=== PATIENT | female | born 1975 | race Caucasian/White ===

== ENCOUNTER → 2020-01-05 15:15 | Outpatient (CLI) | payer BC, SELFPAY ==
--- NOTE | ~2020-01-05 | MM_ITS ---
EXAMINATION: MM screening [facility] BI w mercedes HISTORY: Screening mammogram TECHNIQUE: Craniocaudal and mediolateral oblique 3-D tomosynthesis images were obtained and synthetic 2-D images were generated. CAD analysis was submitted and interpreted. COMPARISON: 12/30/2017 bilateral digital screening mammogram BREAST PARENCHYMAL COMPOSITION: The breasts are heterogeneously dense, which may obscure small masses . FINDINGS: There are scattered bilateral benign calcifications. There is approximately 3.4 x 4.7 x 5.5 mm circumscribed mass in the lower inner left breast approxima tely 4.5 cm from the nipple on CC projection (MLO Tomosynthesis image 29/55; craniocaudal Tomosynthes is image 17/50). In similar position more posteriorly on the left is an approximately 3 x 5.5 mm circumscribed opacity (MLO Tomosynthesis image 29/55). Otherwise there is no evidence of suspicious mass, calcification, or architectural distortion to sugg est malignancy in either breast. There has been no other suspicious interval change. Stable benign in tramammary lymph node in the right axillary tail. IMPRESSION: 1. Left breast masses 2. Diagnostic left mammogram and left breast ultrasound examination are recommended BI-RADS Category 0: Incomplete: Needs additional imaging evaluation. Reviewed, dictated and finalized at location A. IMPRESSION: 1. Left breast masses 2. Diagnostic left mammogram and left breast ultrasound examination are recomme nded BI-RADS Category 0: Incomplete: Needs additional imaging evaluation.
== END ==
PROVIDERS: Visit Provider Obstetrics & Gynecology Gynecology
DX: Z12.31 Encounter for screening mammogram for malignant neoplasm of breast (principal); R92.8 Other abnormal and inconclusive findings on diagnostic imaging of breast
CPT/HCPCS: 77063; 77067

== ENCOUNTER → 2020-01-11 08:22 | Outpatient (CLI) | payer BC, SELFPAY ==
--- NOTE | ~2020-01-11 | MMUS_ITS ---
EXAMINATION: MM diagnostic mammo unilat LT, US breast LT limited HISTORY: Left breast masses on screening mammogram TECHNIQUE: Additional 3-D tomosynthesis images of the left breast were performed and synthetic 2-D im ages were generated. CAD analysis was submitted and interpreted. High resolution limited left breast ultrasound was performed. COMPARISON: 01/05/2020, 12/30/2017 FINDINGS: MAMMOGRAPHIC FINDINGS: There is a 6 mm x 5 mm oval, obscured, equal density mass in the middle third of the lower inner hansa st at the 8:00 location 4 cm from the nipple. A 4 mm x 3 mm oval, obscured, low density mass is seen in the posterior third of the breast at the 8:00 location 6 cm from the nipple. No suspicious archite ctural distortion or calcification are identified. ULTRASOUND: There is a 6 mm x 4 mm oval, circumscribed, parallel, hypoechoic mass at the 7:30 location 3.5 cm fro m the nipple with no posterior features or internal vascularity. A 4 mm x 2 mm mass with similar sono graphic features is seen at the 8:30 location 5 cm from the nipple. IMPRESSION: 1. Probably benign left breast masses. 2. Recommend 6 month follow-up left diagnostic mammogram and ultrasound. BI-RADS category 3, probably benign findings. Reviewed, dictated and finalized at location A. IMPRESSION: 1. Probably benign left breast masses. 2. Recommend 6 month follow-up left diagnostic mammogram and ultrasound. BI-RADS category 3, probably benign findings.
== END ==
PROVIDERS: Visit Provider Obstetrics & Gynecology Gynecology
DX: R92.8 Other abnormal and inconclusive findings on diagnostic imaging of breast (principal)
CPT/HCPCS: 76642; 77065

== ENCOUNTER → 2020-07-13 08:24 | Outpatient (CLI) | payer BC, SELFPAY ==
--- NOTE | ~2020-07-13 | MMUS_ITS ---
EXAMINATION: MM diagnostic [facility] LT w mercedes, US breast LT limited HISTORY: Six-month follow-up for probably benign left breast masses TECHNIQUE: Craniocaudal, mediolateral, and mediolateral oblique 3-D tomosynthesis images of the left breast were performed and synthetic 2-D images were generated. CAD analysis was submitted and interpr eted. High resolution limited left breast ultrasound was performed. COMPARISON: 01/11/2020, 01/05/2020, 12/30/2017 FINDINGS: MAMMOGRAPHIC FINDINGS: The previously described mass at the 8:00 location 4 cm from the nipple has decreased in size now jhonatan suring approximately 4 mm, previously 6 mm. The second mass previously described at the 8:00 location 6 cm from the nipple was not definitely identified. No suspicious calcification or architectural dis tortion are identified. ULTRASOUND: The previously described mass at the 7:30 location 3.5 cm from the nipple has decreased in size, cons istent with benign finding. A 4 mm x 2 mm oval, circumscribed, parallel, hypoechoic mass with no post erior features or internal vascularity at the 8:30 location 5 cm from the nipple is stable. There is a cyst at the 9:00 location 3 cm from the nipple. IMPRESSION: 1. Probably benign left breast mass at the 8:30 location 5 cm from the nipple. 2. Recommend 6 month follow-up left diagnostic mammogram and ultrasound. BI-RADS category 3, probably benign findings. Reviewed, dictated and finalized at location A. IMPRESSION: 1. Probably benign left breast mass at the 8:30 location 5 cm from the nipple. 2. Recommend 6 month follow-up left diagnostic mammogram and ultrasound. BI-RADS category 3, probably benign findings.
== END ==
PROVIDERS: Visit Provider Obstetrics & Gynecology Gynecology
DX: R92.8 Other abnormal and inconclusive findings on diagnostic imaging of breast (principal)
CPT/HCPCS: 76642; 77061; 77065; G0279

== ENCOUNTER → 2021-01-30 09:27 | Outpatient (CLI) | payer BC, SELFPAY ==
--- NOTE | ~2021-01-30 | MMUS_ITS ---
EXAMINATION: MM diagnostic [facility] BI w mercedes, US breast LT limited HISTORY: Six-month follow-up for probably benign left breast mass TECHNIQUE: Craniocaudal, mediolateral, and mediolateral oblique 3-D tomosynthesis images of the breas ts were performed and synthetic 2-D images were generated. CAD analysis was submitted and interpreted . High resolution limited left breast ultrasound was performed. COMPARISON: 07/13/2020, 01/11/2020, 01/05/2020, 12/30/2017 BREAST PARENCHYMAL COMPOSITION: The breasts are heterogeneously dense, which may obscure small masses . FINDINGS: MAMMOGRAPHIC FINDINGS: Left breast: The previously described mass at the 8:00 location 4 cm from the nipple continues to dec rease in size now measuring 2 mm, previously 4 mm. No suspicious calcification or architectural disto rtion are identified. Right breast: Scattered benign-appearing calcifications are present. There is no evidence of suspicio us mass, calcification, or architectural distortion to suggest malignancy. There has been no suspicio us interval change. ULTRASOUND: A previously described mass at the 7:30 location 3.5 cm from the nipple is stable but decreased in si ze since older prior examinations, consistent with benign finding. There is a cyst at the 9:00 locati on 3 cm from the nipple. A cyst is present at the 8:30 location 5 cm from the nipple. IMPRESSION: 1. No mammographic or sonographic evidence of malignancy. 2. Recommend routine screening mammography in one year. BI-RADS Category 2: Benign finding(s). Reviewed, dictated and finalized at location A. IMPRESSION: 1. No mammographic or sonographic evidence of malignancy. 2. Recommend routine screening mammography in one year. BI-RADS Category 2: Benign finding(s).
== END ==
PROVIDERS: Visit Provider Obstetrics & Gynecology Gynecology
DX: R92.8 Other abnormal and inconclusive findings on diagnostic imaging of breast (principal)
CPT/HCPCS: 76642; 77062; 77066; G0279

== ENCOUNTER → 2022-01-08 10:01 | Outpatient (CLI) | payer BC, SELFPAY ==
--- NOTE | ~2022-01-08 | MM_ITS ---
EXAMINATION: MM screening [facility] BI w mercedes HISTORY: Screening mammogram TECHNIQUE: Craniocaudal and mediolateral oblique 3-D tomosynthesis images were obtained and synthetic 2-D images were generated. CAD analysis was submitted and interpreted. COMPARISON: 01/30/2021, 07/13/2020, 01/11/2020, 01/05/2020 BREAST PARENCHYMAL COMPOSITION: There are scattered areas of fibroglandular density. FINDINGS: There is no suspicious mass, calcification, or architectural distortion to suggest malignan cy in either breast. There has been no suspicious interval change. IMPRESSION: 1. No mammographic evidence of malignancy. 2. Recommend routine screening mammography in one year. BI-RADS Category 1: Negative Reviewed, dictated and finalized at location A.
== END ==
PROVIDERS: Visit Provider Obstetrics & Gynecology Gynecology
DX: Z12.31 Encounter for screening mammogram for malignant neoplasm of breast (principal)
CPT/HCPCS: 77063; 77067

== ENCOUNTER → 2023-01-14 07:29 | Outpatient (CLI) | payer BC, SELFPAY ==
--- NOTE | ~2023-01-14 | MM_ITS ---
EXAMINATION: MM screening [facility] BI w mercedes HISTORY: Screening mammogram TECHNIQUE: Craniocaudal and mediolateral oblique 3-D tomosynthesis images were obtained and synthetic 2-D images were generated. CAD analysis was submitted and interpreted. COMPARISON: 01/08/2022 bilateral screening mammogram BREAST PARENCHYMAL COMPOSITION: There are scattered areas of fibroglandular density. FINDINGS: Occasional bilateral benign calcifications. Stable circumscribed low-density opacity in the posterior intermittent left breast. There is no evidence of suspicious mass, calcification, or archi tectural distortion to suggest malignancy in either breast. There has been no suspicious interval radha nge. IMPRESSION: 1. No mammographic evidence of malignancy. 2. Recommend routine screening mammography in one year. BI-RADS Category 2: Benign finding(s). Reviewed, dictated and finalized at location A.
== END ==
PROVIDERS: PCP Obstetrics & Gynecology Gynecology; Visit Provider Obstetrics & Gynecology Gynecology
DX: Z12.31 Encounter for screening mammogram for malignant neoplasm of breast (principal)
CPT/HCPCS: 77063; 77067

== ENCOUNTER 2023-11-27 09:17 | Emergency (ER) | payer BC, SELFPAY ==
[2023-11-27 09:50] VITALS: BP 99/54; PULSE 81; RESP 20; TEMP 37.2; O2SAT 97
--- NOTE | 2023-11-27 09:53 | ED.URI ---
HPI - URI/Sore Throat General Chief Complaint: Upper Respiratory Infection Stated Complaint: chest congestion Time Seen by Provider: 11/27/23 09:50 Source: patient, RN notes reviewed and old records reviewed Mode of arrival: ambulatory Limitations: no limitations History of Present Illness HPI Narrative: 48 year old female who presents to [facility] care with complaints of cough, chest congestion, body aches, and fevers since Friday with highest temperature of 101F. Patient reports that she has been taking Ibuprofen and Mucinex for her symptoms. Patient reports that she has raspy throat, nasal congestion and some pressure to ears, denies any shortness of breath, no nausea or vomiting or diarrhea. Patient reports that she has not had COVID immunizations or Flu shot MD elicited complaint: fever, cough, rhinorrhea, nasal congestion and other (body aches) Onset (ago): day(s) (4) Severity: moderate Able to tolerate fluids by mouth: Yes Treatments prior to arrival: ibuprofen and other (Mucinex) Related Data Home Medications Medication Instructions Recorded Confirmed No Home Medications 11/27/23 11/27/23 Allergies Allergy/AdvReac Type Severity Reaction Status Date / Time No Known Allergies Allergy Unknown Unverified 05/31/20 09:12 [facility] Allergy Unknown Uncoded 05/31/20 09:12 Review of Systems Review of Systems: CONSTITUTIONAL: Reports malaise, chills, sweats, or fever. EYES: Denies visual changes, redness, or discharge. ENT: Reports rhinorrhea, congestion, sinus pain, bilateral pressure to ears and raspy throat. CARDIOVASCULAR: Denies chest pain, palpitations, or edema. RESPIRATORY: Reports cough.? Denies dyspnea. GASTROINTESTINAL: Denies abdominal pain, nausea, vomiting, diarrhea SKIN: Denies rash or itching. MUSCULOSKELETAL: Reports myalgia. NEUROLOGIC: Denies headache. All systems reviewed & are unremarkable except as noted in HPI and below PMFSH Social History Social History Smoking status: Never smoker Second hand tobacco smoke exposure: No Alcohol intake: never Comments At time of signature, agree with nursing past medical, surgical, social and family history. There is no relevant family history pertinent to the presenting complaint Exam Narrative: GENERAL: Well-appearing, well-nourished, and in no acute distress. HEAD: Normocephalic EYES: PERRLA, conjunctivae clear ENT: Nares clear, turbinates edematous and erythematous, clear discharge. Mucous membranes moist. TM pearly finch with dull light reflex bilaterally; no tragal tenderness. Oropharynx erythematous without lesions. Tonsils not enlarged and without exudate, no drooling, no hoarseness, no trismus, uvula midline.Post nasal drainage NECK: Supple. No lymphadenopathy CHEST: Clear to auscultation, breath sounds equal. No wheezing, rhonchi, rales, or stridor. No respiratory distress, speaks in full sentences.cough,SAO2 97% on room air HEART: Regular rate and rhythm. No murmur heard. SKIN: Warm, dry, no rash. NEURO: Alert and oriented x3. PSYCH: Normal mood and affect Course Course Emergency Course: Patient is aware of diagnosis, understands and agrees to treatment plan.? Anticipatory guidance given.? Patient agrees to follow-up as directed and is aware of reasons to seek care at the emergency department. Portions of this record may have been created with voice recognition software Level of Care: Express Care Visit Vital Signs Vital signs: Vital Signs Temperature 37.2 C 11/27/23 09:50 Pulse Rate 81 11/27/23 09:50 Respiratory Rate 20 11/27/23 09:50 Blood Pressure 99/54 L 11/27/23 09:50 Pulse Oximetry 97 11/27/23 09:50 Oxygen Delivery Room Air 11/27/23 09:50 Temperature 37.2 C 11/27/23 09:50 Pulse Rate 81 11/27/23 09:50 Respiratory Rate 20 11/27/23 09:50 Blood Pressure 99/54 L 11/27/23 09:50 Pulse Oximetry 97 11/27/23
== END 2023-11-27 10:17 | disposition home or self-care (01) ==
PROVIDERS: Emergency Provider Registered Nurse
DX: J10.1 Influenza due to other identified influenza virus with other respiratory manifestations (principal); Z20.822 Contact with and (suspected) exposure to COVID-19
CPT/HCPCS: 87426; 87804; 99213; G0463

== ENCOUNTER 2024-02-03 09:26 | Outpatient (CLI) | payer BC, SELFPAY ==
--- NOTE | ~2024-02-03 | MM_ITS ---
EXAMINATION: MM screening [facility] BI w mercedes HISTORY: Screening mammogram TECHNIQUE: Craniocaudal and mediolateral oblique 3-D tomosynthesis images were obtained and synthetic 2-D images were generated. CAD analysis was submitted and interpreted. COMPARISON: January 14, 2023, January 08, 2022 bilateral screening mammogram examinations BREAST PARENCHYMAL COMPOSITION: There are scattered areas of fibroglandular density. FINDINGS: Scattered benign calcifications are again noted. There is no evidence of suspicious mass, c alcification, or architectural distortion to suggest malignancy in either breast. There has been no s uspicious interval change. IMPRESSION: 1. No mammographic evidence of malignancy. 2. Recommend routine screening mammography in one year. BI-RADS Category 2: Benign finding(s). Reviewed, dictated and finalized at location A.
== END 2024-02-03 09:27 ==
LOC: MICIMG 09:27
PROVIDERS: PCP Obstetrics & Gynecology Gynecology; Visit Provider Obstetrics & Gynecology Gynecology
DX: Z12.31 Encounter for screening mammogram for malignant neoplasm of breast (principal)
CPT/HCPCS: 77063; 77067

== ENCOUNTER 2025-02-03 09:14 | Outpatient (CLI) | payer BC, SELFPAY ==
--- NOTE | ~2025-02-03 | MM_ITS ---
EXAMINATION: MM screening [facility] BI w mercedes HISTORY: Screening TECHNIQUE: Craniocaudal and mediolateral oblique 3-D tomosynthesis images were obtained and synthetic 2-D images were generated. CAD analysis was submitted and interpreted. COMPARISON: Comparison to multiple prior studies sequentially, with oldest reviewed study dated 01/10. BREAST PARENCHYMAL COMPOSITION: Dense: The breasts are heterogeneously dense, which may obscure small masses FINDINGS: There is no evidence of suspicious mass, calcification, or architectural distortion to sugg est malignancy in either breast. There has been no suspicious interval change. IMPRESSION: 1. No mammographic evidence of malignancy. 2. Recommend routine screening mammography in one year. BI-RADS Category 1: Negative Reviewed, dictated and finalized at location A.
== END 2025-02-03 09:15 | disposition home or self-care (01) ==
LOC: MICIMG 09:15
PROVIDERS: PCP Obstetrics & Gynecology Gynecology; Visit Provider Obstetrics & Gynecology Gynecology
DX: Z12.31 Encounter for screening mammogram for malignant neoplasm of breast (principal)
CPT/HCPCS: 77063; 77067

== ENCOUNTER 2025-02-18 12:41 | Outpatient (CLI) | payer BC, SELFPAY ==
--- NOTE | ~2025-02-18 | US_ITS ---
EXAM: PELVIC ULTRASOUND HISTORY: Post menopausal bleeding 4 para 3. COMPARISON: None. FINDINGS: UTERUS: 8.4 x 3.8 x 4.1 cm. The uterus is anteverted and anteflexed. The endometrial complex measures 3.6 mm. RIGHT OVARY: The right ovary is unremarkable in echogenicity and size measuring 1.7 x 1.1 x 1.3 cm. Dopplerable flow is identified. LEFT OVARY: The left ovary is unremarkable in echogenicity and size measuring 1.9 x 1.2 x 1.3 cm Dopplerable flow is identified. No free fluid is identified within the pelvis. IMPRESSION: Unremarkable sonographic evaluation of the female pelvis, as detailed above. Reviewed, dictated and finalized at location A.
== END 2025-02-18 12:42 | disposition home or self-care (01) ==
LOC: MICIMG 12:42
PROVIDERS: PCP Obstetrics & Gynecology Gynecology; Visit Provider Obstetrics & Gynecology Gynecology
DX: N95.0 Postmenopausal bleeding (principal)
CPT/HCPCS: 76830

== ENCOUNTER 2025-04-19 08:57 | Outpatient (CLI) | payer BC, SELFPAY ==
--- NOTE | ~2025-04-19 | DEXA_ITS ---
Bone Density Report Name: KIRA MARTIN Age: 49 Sex: Female Ethnicity: White Date of : 1975 Indication: Referring Provider: LUCY DAVIS Study: Bone densitometry was performed. Exam Date: April 19, 2025 Accession number: [id number] Bone Density: Region BMD T-score Z-score Classification AP Spine(L1-L4) 0.921 -1.1 -0.6 Osteopenia Femoral Neck (Left) 0.946 0.9 1.4 Normal Total Hip (Left) 0.956 0.1 0.5 Normal Femoral Neck (Right) 0.898 0.4 1.0 Normal Total Hip (Right) 0.991 0.4 0.8 Normal Total Hip Mean 0.973 0.3 0.7 Normal World Health Organization criteria for BMD impression classify patients as: Normal (T-score at or above -1.0), Osteopenia (T-score between -1.0 and -2.5), or Osteoporosis (T-score at or below -2.5). 10-year Fracture Risk: FRAX not reported because: Premenopausal woman Clinical Information Provided by Patient: Has used the following medications: Vitamin D Patient maximum height was 63 Menopause Age: 49 Onset of menses at age 16 Premenopausal Number of children 3 Missed period for more than 6 months in a row Impression: The patient's bone mass is within expected range for age, gender and ethnicity. Discussion: BONE DENSITY IS WITHIN EXPECTED LIMITS FOR AGE, SEX AND RACE. Bone density is within expected limits for age, sex and race at all sites measured. The patient should follow a healthful lifestyle (good nutrition with adequate calcium and vitamin D, and appropriate weight-bearing exercise). Follow-Up: Consider repeating this study in 2 to 3 years to reassess this patient's status, or sooner if there is some new clinical indication. Reported by: LUIS on 04/19/2025 9:17:00 AM. Reviewed, dictated and finalized at location A.
== END 2025-04-19 08:58 | disposition home or self-care (01) ==
LOC: MICIMG 08:58
PROVIDERS: PCP Obstetrics & Gynecology Gynecology; Visit Provider Obstetrics & Gynecology Gynecology
DX: Z78.0 Asymptomatic menopausal state (principal); M85.88 Other specified disorders of bone density and structure, other site
CPT/HCPCS: 77080